=== PATIENT | female | born 1960 | race Caucasian/White ===

== ENCOUNTER → 2025-04-28 12:50 | Outpatient (REF) | payer OTHER, SELFPAY | LOC: HWRAD 12:50 | PROVIDERS: ATTENDING PHYSICIAN Family Medicine | DX: M54.50 Low back pain, unspecified (principal); M25.551 Pain in right hip; Z86.79 Personal history of other diseases of the circulatory system; R00.2 Palpitations | CPT/HCPCS: 71046; 72100; 73502 ==

== ENCOUNTER → 2025-07-27 15:11 | Outpatient (REF) | payer OTHER, SELFPAY | LOC: PAVMRI 15:11 | PROVIDERS: ATTENDING PHYSICIAN Physician Assistant; FAMILY PHYSICIAN Family Medicine | DX: S73.191A Other sprain of right hip, initial encounter (principal); M25.569 Pain in unspecified knee | CPT/HCPCS: 73562; 73721 ==